=== PATIENT | female | born 1995 ===

== ENCOUNTER 2020-06-29 07:58 | Outpatient (CLI) | payer BC ==
[2020-06-29 17:13] LABS: SARS-CoV-2 MS2 Positive; SARS-CoV-2 N Gene Negative; SARS-CoV-2 S Gene Negative; SARS-CoV-2 by NAA Not Detected (NotDetected); SARS-CoV-2 orf1ab Negative
== END 2020-06-29 07:59 | disposition home or self-care (01) ==
LOC: LABBT 07:58
PROVIDERS: ATTEND Student in an Organized Health Care Education/Training Program
DX: Z20.828 Contact with and (suspected) exposure to other viral communicable diseases (principal)
CPT/HCPCS: 87635; U0003

== ENCOUNTER 2020-07-02 01:30 | Inpatient (IN) | payer BC ==
[2020-07-02 01:57] VITALS: BMI 33.3
[2020-07-02 02:34] LABS: Amnisure Internal Control QC ACCEPTABLE (ACCEPTABLE); Amnisure Test RUPTURE DETECTED (No Rupture)
[2020-07-02] MEDS: Lactated Ringer's 1,000 ML IV SCH ×3 (03:10→09:52)
[2020-07-02] MEDS ORDERED: HYDROcodone/Acetaminophen 5/325 mg Tablet PO PRN ×2 (03:15)
[2020-07-02] MEDS ORDERED: Ondansetron PF 4 MG/2 ML Vial IVP PRN ×2 (03:15→11:12)
[2020-07-02] MEDS ORDERED: Methylergonovine 0.2 MG/ML VIAL IM PRN (03:15)
[2020-07-02] MEDS ORDERED: NS w/ Oxytocin 10 units 500 ML IV SCH (03:15)
[2020-07-02] MEDS ORDERED: Butorphanol Tartrate 1 MG/ML VIAL SLOW IVP PRN (03:15)
[2020-07-02] MEDS ORDERED: Lidocaine 1% (PF) 30 ML VIAL SC PRN (03:15)
[2020-07-02] MEDS ORDERED: hydrALAZINE 20 MG/ML VIAL SLOW IVP PRN (03:15)
[2020-07-02] MEDS ORDERED: Misoprostol 200 MCG TAB RC PRN (03:15)
[2020-07-02] MEDS ORDERED: Carboprost 250 MCG/ML AMP IM PRN (03:15)
[2020-07-02] MEDS ORDERED: Acetaminophen 500 MG TAB PO PRN (03:15)
[2020-07-02] MEDS ORDERED: Diphenoxylate HCl/Atropine Tablet PO PRN ×2 (03:15)
[2020-07-02] MEDS ORDERED: Promethazine HCl 25 MG/ML VIAL IM PRN ×2 (03:15→11:12)
[2020-07-02 03:40] LABS: Hemoglobin 11.9 g/dL (12.0-16.0); Mean Corpuscular HGB CONC 33.3 g/dL (32.0-36.0); Mean Corpuscular Hemoglobin 28.1 pg (27.0-31.0); Mean Corpuscular Volume 84.4 fL (78.0-98.0); Mean Platelet Volume 7.5 fL (7.4-10.4); Platelet Count 359 thou/uL (130-400); RBC Distribution Width 13.1 % (11.5-14.5); Red Blood Cell (RBC) Count 4.22 mill/uL (4.20-5.40); White Blood Cell (WBC) Count 15.3 thou/uL (4.8-10.8)
[2020-07-02] MEDS: NS w/ Oxytocin 10 units 500 ML IV SCH (03:52)
[2020-07-02 04:19] LABS: HBSAg Index 0.19 S/CO (0-0.99); Hep B Surf Ag Non-Reactive S/CO (NonReactive)
[2020-07-02 04:57] LABS: Syphilis Antibody Nonreactive (Nonreactive); Syphilis Antibody Index 0.12 S/CO (<1.00 Non-Reactive)
[2020-07-02] MEDS ORDERED: DISCONTINUE ALL PREVIOUS NARCOTICS FS SCH (09:30)
[2020-07-02] MEDS ORDERED: Bupivacaine 0.5% 20 ML, fentaNYL Citrate/PF 400 MCG in Sodium Chloride 0.9% 72 ML EPIDURAL SCH (09:30)
[2020-07-02] MEDS ORDERED: diphenhydrAMINE 50 MG/ML VIAL ONE (11:07)
[2020-07-02] MEDS ORDERED: diphenhydrAMINE 50 MG/ML VIAL IVP PRN (11:12)
[2020-07-02] MEDS ORDERED: Acetaminophen 325 MG TAB PO PRN (11:12)
[2020-07-02] MEDS ORDERED: Lactated Ringer's 500 ML IV PRN (11:12)
[2020-07-02] MEDS ORDERED: ePHEDrine 50 MG/ML VIAL SLOW IVP PRN (11:12)
[2020-07-02] MEDS ORDERED: Naloxone HCl 0.4 mg/ml Vial IVP PRN ×2 (11:12)
[2020-07-02] MEDS ORDERED: Fentanyl 4 mcg/Bupivacaine 0.1% Cassette 100 ML EPIDURAL SCH (11:15)
[2020-07-02] MEDS ORDERED: Communication Order-Pharmacy FS PRN (11:15)
[2020-07-02] MEDS ORDERED: Bupivacaine/Epinephrine 0.25% 30 ML VIAL ONE (11:31)
[2020-07-02] MEDS: NS / Oxytocin 40 units/1000ml 1,000 ML IV SCH ×3 (14:08→17:05)
--- NOTE | 2020-07-02 14:27 | PDOC.LDHP ---
Labor and Delivery H&P Chief complaint: loss of fluid HPI: 25yo at 40w5d by LMP here with ROM since 0100 this am, clear. No painful contractions on initial admit. Current gestational age (weeks): 40 Due date: 06/27/20 Dating criteria: last menstrual period Grav: 2 Para: 0 Current complications: none Abnormal US findings: No Past Medical History: denies Current medications: pre- vitamins Previous surgical history: none Allergies/Adverse Reactions: Allergies Allergy/AdvReac Type Severity Reaction Status Date / Time Penicillins Allergy Mild Rash Verified 07/02/20 02:00 Social history: none - Physical Exam Vital signs reviewed and normal: yes General: NAD Heart: RRR Lungs: CTAB Abdomen: gravid Extremeties: no edema FHT: category 1 [place] contractions every: 3-4min - Vaginal Exam cm dilated: 3 Effacement: 75% Station: -1 - OB Labs Blood type: O RH: positive Antibody Screen: negative HIV: negative RPR: negative HEPSAg: negative 1 hour GCT: negative GBS: negative Urine drug screen: negative Rubella: immune - Assessment L&D Assessment: term rupture in membranes - Plan Plan: admit to L&D, labor augmentation if indicated, informed consent obtained, anesthesia consult for pain management
--- NOTE | 2020-07-02 14:28 | PDOC.OPDEL ---
OB Operative/Delivery Note Delivery Dr/Surgeon: Ruiz Assist: n/a Pre-Delivery Diagnosis: ruptured membrane Procedure/Post Delivery Dx: spontaneous vaginal delivery Weeks gestation: 40 Anesthesia: epidural - Findings A Sex: male - 1 min: 8 - 5 min: 9 - Additional Findings/Plan Placenta delivered: spontaneous Repaired Obstetrical Laceration: 1st degree Estimated blood loss: 35cc Compilations/Other Findings: NC x 1 tight, delivered through Post delivery plan: routine recovery
[2020-07-02] MEDS: Ibuprofen 800 MG TAB PO PRN (22:21)
[2020-07-03] MEDS: Lactated Ringer's 1,000 ML IV SCH ×2 (08:22→17:00)
[2020-07-03] MEDS: NS w/ Oxytocin 10 units 500 ML IV SCH (08:22)
[2020-07-03 11:39] VITALS: BP 115/59; TEMP 97.5
--- NOTE | 2020-07-03 13:16 | PDOC.PP ---
Post Progress Note Post Day #: 1 PO intake tolerated: yes Flatus: yes Ambulation: yes Vital Signs (12 hours) Temp Pulse Resp BP Pulse Ox 07/03/20 11:38 97.5 F L 83 20 115/59 L 97 07/03/20 08:13 98.5 F 82 20 108/68 98 Weight Weight 200 lb - Physical Examination General: NAD Respiratory: non-labored breathing Abdominal: no distention, appropriately TTP Skin: no rash Neurological: no gross focal deficits Psychiatric: normal affect Result Diagrams: 07/02/20 03:23 Additional Labs: Post Labs Hep Bs Antigen Non-Reactive S/CO (NonReactive) 07/02/20 03:23 Blood Type O POSITIVE 07/02/20 03:23 - Assessment/Plan PPD1 s/p TSVD VSSAF doing well, no issues Rh pos RImm Cont PP care.
[2020-07-03] MEDS: Ibuprofen 800 MG TAB PO PRN (13:52)
[2020-07-03] MEDS ORDERED: Docusate Calcium (SURFAK) 240 MG CAP PO SCH (21:00)
[2020-07-03] MEDS ORDERED: Ibuprofen 800 MG TAB PO SCH (22:00)
[2020-07-04] MEDS ORDERED: Prenatal Vitamin 1 TAB PO SCH (09:00)
== END 2020-07-03 18:50 | disposition home or self-care (01) | DRG 807 ==
LOC: L&D/OP 01:30 → L&D 02:43 → 3SW 17:10
PROVIDERS: ADMIT Student in an Organized Health Care Education/Training Program; ATTEND Student in an Organized Health Care Education/Training Program
PROC: 10E0XZZ Delivery of Products of Conception, External Approach (ICD-10-PCS; principal; 2020-07-02)
PROC: 0HQ9XZZ Repair Perineum Skin, External Approach (ICD-10-PCS; 2020-07-02)
DX: O42.92 Full-term premature rupture of membranes, unspecified as to length of time between rupture and onset of labor (principal); Z37.0 Single live birth; O48.0 Post-term pregnancy; Z3A.40 40 weeks gestation of pregnancy; O70.0 First degree perineal laceration during delivery; O69.1XX0 Labor and delivery complicated by cord around neck, with compression, not applicable or unspecified
CPT/HCPCS: 36415; 84112; 85027; 86780; 86850; 86900; 86901; 87340; 87635; J1200; J2405; J2590; J3010; J3490; U0003